=== PATIENT | female | born 1975 | race Caucasian/White ===

== ENCOUNTER → 2016-11-14 | Outpatient (CLI) | payer OTHER ==
--- NOTE | 2016-11-14 14:07 | DX ---
Left Knee, 5 Views, at 12:28 p.m. Clinical History: 41-year-old female with left knee pain after a fall and a twisting injury. ICD-10 Diagnostic Code: M25.562. Comparison study: None. Findings: Bone mineralization is preserved. There is no fracture or dislocation. There is a small buenrostro prapatellar joint effusion present. There is no loose osteochondral body. There is no marginal erosio n, or soft tissue calcification. On the sunrise view, there is moderate lateral patellofemoral joint space narrowing with slight lateral patellar tilting, but no subluxation. Impression: Moderate lateral patellofemoral joint space narrowing with slight patellar tilting and e vidence of a small suprapatellar joint effusion. If there is further clinical concern regarding the patient's knee pain, MR imaging could be considere d.
== END ==
LOC: CIMAGING 11:49
PROVIDERS: ATTEND Family Medicine
DX: M25.462 Effusion, left knee (principal); S89.92XA Unspecified injury of left lower leg, initial encounter; X50.9XXA Other and unspecified overexertion or strenuous movements or postures, initial encounter
CPT/HCPCS: 73560-PO

== ENCOUNTER → 2016-11-26 | Outpatient (CLI) | payer OTHER ==
--- NOTE | 2016-11-26 17:55 | MR ---
MRI Lower Extremity, Left Knee History: Left knee pain. Skiing injury on November 13, 2016. ICD 10 code M25.562. Technique: MRI is performed of the knee using a 1.5 [employer] MRI system. Sagittal, coronal, and axial im aging was obtained with standard imaging sequences. Findings General: There is moderate suprapatellar joint effusion. There is a mildly thickened suprapatellar pl ica. Mild bone marrow edema seen in the posteriolateral tibial plateau. Ligaments and tendons: There is edema and discontinuity of fibers of the proximal anterior cruciate l igament. Questionable minimal intact fibers remaining. Posterior cruciate ligament is intact. Medial collateral ligament and pes anserinus are unremarkable. Iliotibial band, fibular collateral ligament, and biceps femoris are unremarkable. Popliteus muscle and tendon is intact. Menisci and cartilage: No evidence for meniscal tear. No significant cartilage attenuation in the med ial or lateral compartments. Extensor mechanism: Cartilage signal abnormality, mild fissuring, and thinning is seen along the medi an ridge and medial facet of the patella. Mild thinning is seen in the inferior trochlear groove. Raad driceps tendon and patellar tendon are unremarkable. Impression: 1. Acute complete versus less likely high-grade partial tear of the proximal anterior cruciate ligame nt. 2. 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 Small bone contusion posterolateral tibial plateau. 4. Moderate suprapatellar joint effusion. Mildly thickened suprapatellar plica.
== END ==
LOC: FIMAGING 07:59
PROVIDERS: ATTEND Family Medicine
DX: S83.512A Sprain of anterior cruciate ligament of left knee, initial encounter (principal); M22.42 Chondromalacia patellae, left knee; T14.8 Other injury of unspecified body region; M25.462 Effusion, left knee; Y93.23 Activity, snow (alpine) (downhill) skiing, snowboarding, sledding, tobogganing and snow tubing

== ENCOUNTER → 2016-12-15 | Outpatient (CLI) | payer OTHER | LOC: CIMAGING 14:40 | PROVIDERS: ATTEND Orthopaedic Surgery | DX: S83.512A Sprain of anterior cruciate ligament of left knee, initial encounter (principal); X58.XXXA Exposure to other specified factors, initial encounter | CPT/HCPCS: 93971-PO ==

== ENCOUNTER → 2018-10-19 | Outpatient (CLI) | payer OTHER | LOC: CIMAGING 07:31 | PROVIDERS: ATTEND Family Medicine | DX: Z12.31 Encounter for screening mammogram for malignant neoplasm of breast (principal) ==

== ENCOUNTER → 2019-04-24 | Outpatient (CLI) | payer OTHER | LOC: BRMIMAGING 09:41 ==